=== PATIENT | female | born 1970 | race Caucasian/White ===

== ENCOUNTER 2018-04-24 08:45 | Day surgery (SDC) | payer BC ==
[~2018-04-24 08:45] MED LIST: Metoclopramide 10 MG/2 ML SDV IV PRN
[2018-04-24] MEDS: Sodium Chloride 0.9% 1,000 ML IV SCH ×2 (10:27→10:28)
[2018-04-24 14:55] VITALS: BP 162/92
--- NOTE | 2018-04-24 16:58 | OR ---
DATE OF OPERATION: 04/24/2018 PREOPERATIVE DIAGNOSIS: Screening colonoscopy. POSTOPERATIVE DIAGNOSIS: Screening colonoscopy. PROCEDURE: Colonoscopy. ANESTHESIA: MAC. ESTIMATED BLOOD LOSS: None. COMPLICATIONS: None. INDICATIONS FOR THE PROCEDURE: The patient is a 48-year-old female here today for her first colonoscopy. She did have a grandmother who did have colon cancer in her late 60s. The patient otherwise denies any change in bowel habits. DESCRIPTION OF PROCEDURE: Informed consent was obtained from the patient. The patient was taken to the operating room and placed on the table in left lateral decubitus position. Monitored anesthesia care was administered. Digital rectal exam was performed and was normal. Colonoscope was then advanced through the anus directed towards the cecum. Cecum was reached and identified by appendiceal orifice and the ileocecal valve. Colonoscope was then slowly withdrawn. No masses. No polyps. No areas of AV malformations. No areas of ischemia or inflammation identified. Retroflexion also performed in the rectum was also unremarkable. Colonoscope was then withdrawn. The patient was taken to recovery in good condition. FINDINGS: Normal colonoscopy. RECOMMENDATIONS: Would recommend repeat screening colonoscopy in 10 years. ANKUR/OLIVA /[id number]
== END 2018-04-24 12:50 ==
LOC: LB.SDS 08:45
PROVIDERS: ATTEND Surgery
DX: Z12.11 Encounter for screening for malignant neoplasm of colon (principal); Z80.0 Family history of malignant neoplasm of digestive organs
CPT/HCPCS: J2765; J7030